=== PATIENT | female | born 1970 | race Caucasian/White ===

== ENCOUNTER → 2017-02-03 | Day surgery (SDC) | payer OTHER ==
[~2017-02-03] VITALS: Ht 165.1 cm; Wt 120.7 kg
[~2017-02-03] MED LIST: ANTIVERT 25MG #1 PAC PO; LISINOPRIL20 M1 PO
--- NOTE | 2017-02-03 10:28 | MAMMOGRAPHY REPORT ---
EXAMINATION: MM GUIDED NEEDLE LOCALIZATION BREAST, RIGHT CLINICAL INFORMATION: Needle localization for right breast invasive ductal carcinoma at 11:00. COMPARISON: Ultrasound-guided biopsy and mammogram dated 12/20/2016. TECHNIQUE NEEDLE LOC: Proper informed consent is obtained from the patient after discussion of the procedure, potential risks and complications, and alternatives including declining the procedure today. Patient was given an opportunity for questions. The patient appeared to understand. The patient consented to the procedure and signed the consent form. GUIDANCE: Digital mammography. APPROACH: Superior. TARGET: Biopsy clip in the 11:00 position of the right breast. ANESTHESIA: 10 mL Xylocaine 2%. LOCALIZATION MARKER: [employer] 7 cm needle localization system. The skin was prepped and local anesthesia administered. The needle was positioned and position assessed with mammography. The wire was hooked into position. The patient tolerated the procedure well and had no immediate complication. Diagram was marked for the surgeon. The target is a biopsy clip in the 11:00 position of the right breast, 4.5 cm deep to the skin with 13 cm of the wire remaining external to the skin. IMPRESSION: Status post right breast needle localization with wire hooked into position. The target is a biopsy clip in the 11:00 position of the right breast, 4.5 cm deep to the skin with 13 cm of the wire remaining external to the skin.
--- NOTE | 2017-02-03 12:23 | Operative Report ---
Operative/Inv Procedure Report Surgery Date: 02/03/17 Name of Procedure: Right partial mastectomy with wire localization and sentinel lymph node biopsy Pre-Operative Diagnosis: Right breast cancer Post-Operative Diagnosis: Same Estimated Blood Loss: less than 50ml Surgeon/Financial Services Officer: JATIN SHIPAMN MD Anesthesia: laryngeal mask airway Specimens: Right lumpectomy, cranial margin, caudal margin, medial margin, lateral margin, sentinel lymph node 2 Operative/Procedure Note Note: Patient status post needle biopsy showed invasive breast cancer. She underwent preoperative lymphoscintigraphy and wire localization and those films were reviewed. She is brought to the operating room on 02/03/2017 and placed supine on the table. Laryngeal mask airway anesthesia was administered as well as 3 g of Ancef. 3 mL of methylene blue diluted with 2 mL saline was injected in the retroareolar fashion. The right breast was prepped and draped in a sterile fashion using ChloraPrep. The axilla was approached first. Local anesthesia of 1% lidocaine mixed half percent Marcaine was given and a transverse incision was made. The axilla was explored. There was a hot blue lymph node with counts of 1000. An additional lymph node with counts of 150 was also identified and sent separately. There were no other hot, blue, or palpable lymph nodes in the axilla. Hemostasis is adequate. Deep tissue was approximated using interrupted Vicryl sutures, and the skin was closed using a running Biosyn subcuticular stitch. The breast was then approached. A curvilinear incision was made at 12: 00 in the right breast. The wire was brought into the incision. The dissection started the subcutaneous tissue. The area of concern was dissected using electrocautery. Specimen was marked for orientation using margin map. Intraoperative x-ray confirmed the presence of the clip. Additional margins were taken in the cranial, caudal, medial, lateral, deep positions. He was stasis was adequate. A 2 x 2 BioSorb Marker was then placed and fastened to the adjacent breast tissue using interrupted Maxon sutures. Tissue was approximated using interrupted Vicryl sutures and the skin was closed in running Biosyn subcuticular stitch. Steri-Strips and sterile dressings were applied and patient transferred to the recovery room in satisfactory condition having tolerated the procedure well.
--- NOTE | 2017-02-03 16:50 | MAMMOGRAPHY REPORT ---
EXAMINATION: MM NEEDLE LOCALIZATION SPECIMEN FROM THE BREAST, RIGHT CLINICAL INDICATION: Excision of right breast invasive ductal carcinoma in the 11:00 position. COMPARISON: Needle localization films from earlier today. TECHNIQUE: Single view of the specimen was performed. FINDINGS: The radiograph of the excised surgical specimen shows that the hookwire is delivered intact and the marker clip is identified in the specimen. IMPRESSION: Satisfactory excision of the targeted lesion. These findings were communicated to the surgeon in the OR at the time of specimen radiography.
== END ==
LOC: STS 02:41 → CBW.IIU 09:00 → STS 09:00 → CBW.MAMMO 09:30
DX: C50.411 Malignant neoplasm of upper-outer quadrant of right female breast (principal); I10 Essential (primary) hypertension; E66.9 Obesity, unspecified; Z68.41 Body mass index [BMI] 40.0-44.9, adult
CPT/HCPCS: 81025; 88305; 88307; C9728; J0690; J1885; J2001; J2250

== ENCOUNTER → 2017-02-17 | Day surgery (SDC) | payer OTHER ==
[~2017-02-17] VITALS: Ht 162.6 cm; Wt 120.7 kg
--- NOTE | 2017-02-17 10:02 | Operative Report ---
Operative/Inv Procedure Report Surgery Date: 02/17/17 Name of Procedure: Reexcision right lumpectomy Pre-Operative Diagnosis: Right breast cancer, positive margin for DCIS Post-Operative Diagnosis: Same Estimated Blood Loss: scant Surgeon/Orchestra Conductor: JATIN SHIPMAN MD Anesthesia: local monitored anesthesi Specimens: Caudal margin, lateral margin, deep margin Operative/Procedure Note Note: Patient is status post a right lumpectomy and sentinel node biopsy. Invasive tumor had good margins, however DCIS was seen at the caudal margin and was closed to the deep and lateral margins. She is brought to the operating room on 02/17/2017 placed supine on table. 3 g of Ancef was given and the right breast was prepped and draped in a sterile fashion using ChloraPrep. The previous incision was used. Local anesthesia of 1% lidocaine mixed half percent Marcaine was given and the incision was opened. Seroma was found and drained. Biosorb Marker was removed and retained on the back table. The deep margin, caudal margin, and lateral margins were excised and marked with sutures at the true margins. Hemostasis was achieved using electrocautery. The BioSorb Marker was replaced approximated to the margins using Maxon sutures. Breast tissue was approximated using Vicryl sutures to cover the Marker. Skin was closed using a running Biosyn subcuticular stitch. Steri-Strips and sterile dressings were applied and the patient was transferred to the recovery room in satisfactory condition having tolerated the procedure well.
== END ==
LOC: STS 03:15
DX: C50.411 Malignant neoplasm of upper-outer quadrant of right female breast (principal); E66.9 Obesity, unspecified; Z68.41 Body mass index [BMI] 40.0-44.9, adult; I10 Essential (primary) hypertension
CPT/HCPCS: 81025; 88305; J0131; J0690; J2250

== ENCOUNTER → 2017-11-16 | Day surgery (SDC) | payer OTHER ==
[~2017-11-16] VITALS: Ht 165.1 cm; Wt 117.9 kg
[~2017-11-16] MED LIST changes: +KEFLEX500 M1 PO; +PERCOCET 5-3251 EACH PO; +VALIUM10 M1 PO
--- NOTE | 2017-11-16 12:43 | Operative Report ---
Operative/Inv Procedure Report Surgery Date: 11/16/17 Name of Procedure: Exchange right breast tissue sheather for implant, capsulorrhaphy, capsulectomy, revision reconstructed breasts Pre-Operative Diagnosis: Tissue sheather following right mastectomy Post-Operative Diagnosis: Same Estimated Blood Loss: scant Surgeon/Workers Compensation Coordinator: Young Kwon MD Anesthesia: general endotracheal tube Operative/Procedure Note Note: Patient was counseled extensively regards to the procedure the alternatives the risks and expected outcomes as relates to request surgical intervention to replace her right-sided tissue sheather of the breast with a permanent breast prosthesis. She was given a SPS informed consent which she has apparently has understood and has no questions regarding it today. She was told she will be receiving 800 mL implant and she is accepting of that. We talked about the risks of infection seroma hematoma bleeding pain open wound and need for possible explantation. Once agreed informed consent was signed. She was brought to the operative placed supine on the table. Venodyne boots are placed and then general anesthesia was established and 3 g of intravenous antibiotics were given. The chest was prepped and draped in usual sterile fashion. Ioban draping was used at the periphery. Incision was made in the inframammary fold and the capsule was entered. Periprosthetic capsulectomy was performed inferior medial and superiorly. After excising it laterally was imbricated to reduce the pocket laterally. A 800 mL silicone [place] moderate plus profile was placed in the pocket following placement of wound closure sutures. Additional 2 layers of sutures were performed including an external 4-0 nylon. Of note no touch technique was used with multiple preparations of the skin multiple glove changes triple antibiotic Betadine irrigation for the pocket and the implant. Was hemostatic at the completion as evidenced with a lighted retractor and therefore no drain was placed.
== END ==
LOC: STS 01:27
DX: Z85.3 Personal history of malignant neoplasm of breast (principal); Z90.11 Acquired absence of right breast and nipple; I10 Essential (primary) hypertension
CPT/HCPCS: C1789; J0690; J1580

== ENCOUNTER → 2018-04-06 | Day surgery (SDC) | payer OTHER ==
--- NOTE | 2018-04-06 17:01 | Operative Report ---
Operative/Inv Procedure Report Surgery Date: 04/06/18 Name of Procedure: Revision right reconstructed breast with fat grafting liposuction lateral breast chest for symmetry left-sided breast reduction Pre-Operative Diagnosis: Breast asymmetry following right-sided breast cancer with mastectomy and implant reconstruction. Post-Operative Diagnosis: Same Estimated Blood Loss: 50ml to 100ml Surgeon/Water Resources Program Director: Doyle BLAND,Young Teran Anesthesia: general endotracheal tube Operative/Procedure Note Note: Patient was counseled extensively in regards to the procedure the alternatives the risks and expected outcomes are related to her request for surgical intervention to treat breast asymmetry following breast reconstruction. Patient has lateral chest rolls that are asymmetric due to mastectomy on the left and they will be treated with liposuction. She has indentation in the upper right breast and this will be treated with a fat grafting. She has a left breast that is larger with an inferiorly positioned nipple areolar complex that is also large. We talked about a breast reduction on the left which will bring the nipple up but will also increase the projection. She understands this will take some time to even out and drop somewhat in the future. We talked about the risks of fat grafting although the intention will be to stay extracapsular that could be a complication from the implant. We talked about loss of fat take as well as infection in the operative sites. They will be loose skin on the lateral chest since there is skin excess that is not being treated today. Talked about open wounds bleeding pain numbness hematoma seroma loss either partially or completely of the nipple areolar complex sensibility and/or tissue. Once agreed she was marked in the standing position of the appropriate surgical sites. A circumflex vertical reduction was planned. Informed consent was then side. She was taken to the operating room placed supine on the table. The midline boots were placed general anesthesia was established intravenous antibiotics were given and the chest was prepped and draped in usual sterile fashion. Tumescent fluid was placed in the areas of intended liposuction. 1 L total was used. The right side underwent a circumflex vertical reduction with a 3 layer closure. Liposuction was carried out of the lateral chest and tail of breast. Only liposuctioned material from the posterior right breast was placed within the right breast approximately 70 cc in the subcutaneous plane. This was done through a medial stab incision with retraction of the implant. Incisions were all closed and glued.
== END ==
LOC: STS 03:37
DX: N65.1 Disproportion of reconstructed breast (principal); Z85.3 Personal history of malignant neoplasm of breast; I10 Essential (primary) hypertension; E66.9 Obesity, unspecified; Z68.41 Body mass index [BMI] 40.0-44.9, adult
CPT/HCPCS: J0171; J0690; J2250; Q9968